=== PATIENT | male | born 1990 | race African-American/Black ===

== ENCOUNTER 2020-03-20 10:58 | Emergency (ER) | payer BC ==
[~2020-03-20] VITALS: Ht 167.6 cm; Wt 50.0 kg
[~2020-03-20 10:58] MED LIST: CIPRO500 MG OR; KEFLEX500 MG PO; NO HOME MEDS; ULTRAM50 M1 PO; ZOFRAN4 MG OR
[2020-03-20 12:34] LABS: URINE BILIRUBIN - DIPSTICK NEGATIVE (NEGATIVE); URINE BLOOD DIPSTICK LARGE (NEGATIVE); URINE GLUCOSE - DIPSTICK NEGATIVE (NEGATIVE); URINE KETONE TRACE mg/dL (NEGATIVE); URINE LEUK ESTERASE NEGATIVE (NEGATIVE); URINE NITRITE - DIPSTICK NEGATIVE (Negative); URINE PH 7.5 (4.5-8.0); URINE PROTEIN - DIPSTICK TRACE mg/dL (NEG-TRACE)
[2020-03-20 12:37] LABS: URINE COLOR DK. YELLOW
[2020-03-20 12:39] LABS: URINE RBC 25-50 RBC/hpf (0-5)
[2020-03-20 12:52] LABS: HEMATOCRIT 40.8 % (39.0-50.0); HEMOGLOBIN 13.5 g/dl (14.0-18.0); IMMATURE GRANULOCYTES 0.2 % (0.0-5.0); MEAN CELL VOLUME 91.9 fL CALC (80.0-100.0); MEAN CORPUSCULAR HGB 30.4 pG CALC (26.0-32.0); MEAN CORPUSCULAR HGB CONC 33.1 g/dL CAL (32.0-36.0); NEUT# 2.91 thou/uL (1.82-7.42); RED BLOOD COUNT 4.44 mill/uL (4.70-6.10); RED CELL DISTRI WIDTH 12.4 % (11.5-15.5)
[2020-03-20 13:25] LABS: ALBUMIN 4.1 g/dL (3.2-5.0); ALKALINE PHOSPHATASE 51 u/l (38-126); BILIRUBIN, TOTAL 0.8 mg/dL (0.0-1.4); BUN 13 mg/dL (9-20); BUN/CREATININE RATIO 14 (12-20 (CALC)); CHLORIDE 106 mmol/l (95-108); GFR > 60 ML/MIN (>=60 (CALC)); GFR FOR AFR.AMER. > 60 ML/MIN (>=60 (CALC)); LIPASE 53 u/l (23-300); SGOT/AST 21 u/l (17-59); SODIUM 139 mmol/l (137-146)
[2020-03-20 13:26] LABS: ANION GAP 8 (6-22 (CALC)); CARBON DIOXIDE 29 mmol/l (22-30); POTASSIUM 3.9 mmol/l (3.5-5.1); TOTAL PROTEIN 6.9 g/dL (6.3-8.2)
[2020-03-20] MEDS ORDERED: TAMSULOSIN0.4 MG PO (14:09)
[2020-03-20 14:18] VITALS: BP 108/56
== END 2020-03-20 14:26 | disposition home or self-care (01) | DRG 694 ==
LOC: ED 10:58
PROVIDERS: Family Medicine
DX: N20.1 Calculus of ureter (principal); Z87.442 Personal history of urinary calculi

== ENCOUNTER 2022-05-05 03:11 | Emergency (ER) | payer OTHER ==
[~2022-05-05] VITALS: Ht 167.6 cm; Wt 62.3 kg
[~2022-05-05 03:11] MED LIST changes: +TAMSULOSIN0.4 MG PO
[2022-05-05 05:54] VITALS: BP 136/90
== END 2022-05-05 06:05 | disposition home or self-care (01) | DRG 552 ==
LOC: ED 03:11
DX: M54.2 Cervicalgia (principal); V49.40XA Driver injured in collision with unspecified motor vehicles in traffic accident, initial encounter

== ENCOUNTER 2023-07-24 17:32 | Emergency (ER) | payer OTHER | END 2023-07-24 18:18 | disposition left against medical advice (07) | DRG 951 | LOC: ED 17:32 → LWOBS 18:17 | DX: Z53.21 Procedure and treatment not carried out due to patient leaving prior to being seen by health care provider (principal) ==

== ENCOUNTER 2024-05-20 02:13 | Emergency (ER) | payer BC ==
[~2024-05-20] VITALS: Ht 167.6 cm; Wt 75.0 kg
[2024-05-20 02:22] VITALS: BP 125/99
[2024-05-20 02:30] VITALS: BP 112/67
[2024-05-20 02:46] VITALS: BP 126/74
[2024-05-20] MEDS ORDERED: LORazepam 1 MG/TAB PO ONE (02:50)
[2024-05-20 03:00] VITALS: BP 131/70
[2024-05-20 03:42] VITALS: BP 131/70
== END 2024-05-20 03:42 | disposition home or self-care (01) | DRG 897 ==
LOC: ED 02:13
DX: F10.129 Alcohol abuse with intoxication, unspecified (principal); R45.1 Restlessness and agitation